=== PATIENT | female | born 1960 | race Caucasian/White ===

== ENCOUNTER → 2016-12-02 | Outpatient (CLI) | payer BC ==
--- NOTE | 2016-12-03 09:42 | REP ---
MRI abdomen without and with IV gadolinium: History: History of breast carcinoma with CT study of the chest from November 08, 2016 showing two lesions in the liver. Gadolinium enhancement dose: 17 ml of intravenous ProHance. MR technique: Axial and coronal imaging planes are utilized. T1 and T2-weighted sequences include spin-echo, fast spin echo, gradient echo, in and out of phase, and dynamically acquired post gadolinium enhanced T1-weighted fat sat thrive sequences. MRI findings: No focal splenic lesion is seen. No adrenal abnormality is observed. The kidneys are morphologically intact and enhance normally and symmetrically. No pancreatic lesion is observed. There is no evidence of ascites. The two liver lesions are as noted on CT. The largest measures 3.2 cm in greatest diameter by 3.0 cm by 2.2 cm. The smaller lesion measures 1.3 by 1.4 by 1.2 cm. There are two additional tiny lesions in the right lobe adjacent to the larger lesion. These measure 7 mm each in greatest diameter. No other focal liver lesion is seen. Each of these liver lesions demonstrates low T1, high T2 signal intensity. The two larger lesions demonstrate the typical initial peripheral discontinuous pattern of contrast enhancement with gradual filling in on subsequent images in the dynamic sequence post contrast. All four lesions enhance homogeneously on the 10-minute post contrast study. They are felt to be compatible with benign hemangiomas. No other abnormality is seen. Impression: There are four liver lesions identified which are felt to be benign hemangiomas. Signed by Paulie Ibanez MD 12/03/2016 02:46 P
== END ==
LOC: M RAD 13:10
PROVIDERS: ATTEND Internal Medicine Medical Oncology
DX: K76.9 Liver disease, unspecified (principal); Z85.3 Personal history of malignant neoplasm of breast
CPT/HCPCS: 74183; A9576

== ENCOUNTER → 2020-05-20 | Outpatient (CLI) | payer BC ==
[~2020-05-20] MED LIST: LISI-898 PO; METF-839 PO; METF10004 PO
--- NOTE | 2020-05-20 16:09 | REP ---
INDICATION: PAIN COMPARISON: None. TECHNIQUE: Upright view of the chest with supine and upright views of the abdomen and pelvis. FINDINGS: Frontal upright view of the chest demonstrates no acute cardiopulmonary process or free air below the diaphragm to suspect pneumoperitoneum. Evidence for prior left axillary node dissection noted. Supine and upright views of the abdomen and pelvis demonstrate nonspecific bowel gas pattern without obstruction or perforation. Fecal stasis requires clinical correlation. No organomegaly. No significant abnormal calcifications. Skeletal structures normal for age. IMPRESSION: Nonspecific bowel gas pattern. Query moderate fecal stasis. <Electronically signed by Junior Durham > 05/20/20 [id number]
== END ==
LOC: M WUC 15:47
PROVIDERS: ATTEND Nurse Practitioner Adult Health
DX: R30.0 Dysuria (principal)

== ENCOUNTER 2023-12-07 07:57 | Day surgery (SDC) | payer BC ==
[~2023-12-07] VITALS: Ht 170.2 cm; Wt 83.4 kg
[~2023-12-07 07:57] MED LIST changes: +AMLO1TAB24 PO; +JANU100T PO; +JARD1TAB3 PO; -LISI-898 PO; +LISI5TAB11 PO; +METF500T13 PO; +ROSU40TA81 PO; +SEMA0.257
[2023-12-07] MEDS: NS 1,000 ML IV ONE (08:20)
[2023-12-07] MEDS ORDERED: propofoL 200 MG/20 ML VIAL As Ordered ONE (09:09)
[2023-12-07 09:16] VITALS: TEMP 98.4
[2023-12-07 09:45] VITALS: BP 155/81; O2SAT 97
== END 2023-12-07 09:56 | disposition home or self-care (01) ==
LOC: M OPP 07:57
PROVIDERS: ATTEND Internal Medicine Gastroenterology
DX: Z12.11 Encounter for screening for malignant neoplasm of colon (principal); D12.6 Benign neoplasm of colon, unspecified; K64.0 First degree hemorrhoids; K57.30 Diverticulosis of large intestine without perforation or abscess without bleeding; E11.9 Type 2 diabetes mellitus without complications; I10 Essential (primary) hypertension; Z79.2 Long term (current) use of antibiotics; Z79.84 Long term (current) use of oral hypoglycemic drugs; Z79.899 Other long term (current) drug therapy

== ENCOUNTER → 2024-01-02 | Outpatient (CLI) | payer BC | LOC: M WHC 13:28 | PROVIDERS: ATTEND Internal Medicine | DX: M85.80 Other specified disorders of bone density and structure, unspecified site (principal) ==

== ENCOUNTER → 2024-10-04 | Outpatient (REF) | payer BC ==
[2024-10-04 15:22] LABS: VITAMIN B12 LEVEL 410 PG/ML (211-911)
[2024-10-04 15:26] LABS: C REACTIVE PROTEIN QUANTITATIV < 0.50 MG/DL (<1.0)
[2024-10-08 15:03] LABS: LYME TOTAL ANTIBODY CIA <= 0.90 Index (<=0.90)
== END ==
LOC: M LAB REF 12:31
PROVIDERS: ATTEND Internal Medicine
DX: G62.9 Polyneuropathy, unspecified (principal)